=== PATIENT | male | born 1980 | race Native Hawaiian/Other Pacific Islander ===

== ENCOUNTER → 2022-08-31 12:21 | Outpatient (BNVA) | payer OTHER, SELFPAY | PROVIDERS: PCP Family Medicine; Visit Provider Internal Medicine Endocrinology, Diabetes & Metabolism | DX: E29.1 Testicular hypofunction (principal) | CPT/HCPCS: 99202 ==

== ENCOUNTER 2022-11-11 09:33 | Outpatient (REF) | payer OTHER, SELFPAY ==
[2022-11-11 11:44] LABS: Ferritin 96 ng/mL (20-250); Free T4 (Free Thyroxine) 0.85 ng/dL (0.71-1.85); Thyroid Stimulating Hormone 1.31 uIU/mL (0.32-4.0)
[2022-11-11 11:54] LABS: Cortisol Random 12.7 ug/dL
[2022-11-12 17:45] LABS: Follicle Stimulating Hormone 6.3 mIU/mL (1.6-8.0); Lutenizing Hormone 6.1 mIU/mL (1.5-9.3); Prolactin 5.3 ng/mL (2.0-18.0)
[2022-11-20 16:28] LABS: Testosterone, Total 190 ng/dL (250-1100)
== END 2022-11-11 09:34 | disposition home or self-care (01) ==
LOC: HO.LAB 09:33
PROVIDERS: PCP Family Medicine; Visit Provider Internal Medicine Endocrinology, Diabetes & Metabolism
DX: E29.1 Testicular hypofunction (principal)
CPT/HCPCS: 36415; 82533; 82728; 83001; 83002; 84146; 84402; 84403; 84439; 84443

== ENCOUNTER 2022-12-14 07:52 | Outpatient (REF) | payer OTHER, SELFPAY ==
[2022-12-22 14:39] LABS: Follicle Stimulating Hormone 12.7 mIU/mL (1.6-8.0); Lutenizing Hormone 8.6 mIU/mL (1.5-9.3); Prolactin 12.7 ng/mL (2.0-18.0); Testosterone, Free 30.5 pg/mL (35.0-155.0); Testosterone, Total 205 ng/dL (250-1100)
== END 2022-12-14 07:53 | disposition home or self-care (01) ==
LOC: HO.LAB 07:52
PROVIDERS: PCP Family Medicine; Visit Provider Internal Medicine Endocrinology, Diabetes & Metabolism
DX: E29.1 Testicular hypofunction (principal)
CPT/HCPCS: 36415; 83001; 83002; 84146; 84402; 84403

== ENCOUNTER → 2022-12-30 12:55 | Outpatient (BNVA) | payer OTHER, SELFPAY | PROVIDERS: PCP Family Medicine; Visit Provider Internal Medicine Endocrinology, Diabetes & Metabolism | DX: E29.1 Testicular hypofunction (principal) | CPT/HCPCS: 99212 ==

== ENCOUNTER 2023-01-18 12:55 | Outpatient (REF) | payer OTHER, SELFPAY ==
--- NOTE | ~2023-01-18 | MR_ITS ---
EXAMINATION: MR BRAIN WITHOUT AND WITH CONTRAST CLINICAL INFORMATION: Testicular hypofunction. COMPARISON: None available. TECHNIQUE: Multiplanar, multisequence imaging of the brain was performed before and after the intravenous administration of 5 mL of Gadavist. FINDINGS: There is no acute infarction, hemorrhage, or extra-axial fluid collection. A 6 mm lesion with peripheral hemosiderin staining and central T2 hyperintensity is seen within the left frontal lobe most likely representing a cavernous malformation (series 7 image 17/27). There is no perilesional edema to suggest recent hemorrhage. The frontal lobe parenchyma adjacent to the cavernous malformation appears diffusely thickened compatible with focal cortical dysplasia best defined on series 7 image 18/27. Given the diffuse sheetlike enhancement in this region, a capillary telangiectasia may be superimposed. The brain parenchyma signal is otherwise normal. The midline structures are normal. The corpus callosum is fully formed. The cerebellar tonsils terminate normally above the foramen magnum. The pituitary gland demonstrates heterogeneous enhancement. No definite well-defined hypoenhancing lesion is seen. Infundibulum is normal in thickness and morphology and inserts in the midline. The flow voids of the major intracranial arteries appear intact. The bones and extracranial soft tissues are within normal limits. MR/MR head/brain wo/w con IMPRESSION: 1. No definite pituitary lesion identified. Heterogeneous enhancement of the pituitary gland without a well-defined hypoenhancing lesion. 2. 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
== END 2023-01-18 12:56 | disposition home or self-care (01) ==
LOC: HO.MRI 12:55
PROVIDERS: PCP Family Medicine; Visit Provider Internal Medicine Endocrinology, Diabetes & Metabolism
DX: E29.1 Testicular hypofunction (principal)
CPT/HCPCS: 70553; A9585

== ENCOUNTER → 2023-03-03 10:25 | Outpatient (BNVA) | payer OTHER, SELFPAY | PROVIDERS: PCP Family Medicine; Visit Provider Internal Medicine Endocrinology, Diabetes & Metabolism | DX: E29.1 Testicular hypofunction (principal) | CPT/HCPCS: 99212 ==

== ENCOUNTER 2023-06-12 10:42 | Outpatient (REF) | payer OTHER, SELFPAY ==
[2023-06-12 11:42] LABS: Hemoglobin 15.1 g/dl (14.0-18.0)
[2023-06-18 10:48] LABS: Testosterone, Total 234 ng/dL (250-1100)
== END 2023-06-12 10:43 | disposition home or self-care (01) ==
LOC: HO.LAB 10:42
PROVIDERS: PCP Family Medicine; Visit Provider Internal Medicine Endocrinology, Diabetes & Metabolism
DX: E29.1 Testicular hypofunction (principal)
CPT/HCPCS: 36415; 84402; 84403; 85014; 85018

== ENCOUNTER 2023-06-19 08:53 | Outpatient (REF) | payer OTHER, SELFPAY ==
[2023-06-26 14:43] LABS: Testosterone, Free 171.6 pg/mL (35.0-155.0); Testosterone, Total 478 ng/dL (250-1100)
== END 2023-06-19 08:54 | disposition home or self-care (01) ==
LOC: HO.LAB 08:53
PROVIDERS: PCP Family Medicine; Visit Provider Internal Medicine Endocrinology, Diabetes & Metabolism
DX: Z13.89 Encounter for screening for other disorder (principal)
CPT/HCPCS: 36415; 84402; 84403

== ENCOUNTER 2024-01-17 13:25 | Outpatient (AMB) | payer OTHER, SELFPAY ==
[2024-01-17 13:28] VITALS: BP 116/68; BMI 26.4
--- NOTE | 2024-01-17 13:28 | MHC.OFFVIS ---
Intake Vital Signs 01/17/24 13:28 Height 6 ft 2.8 in Weight 210 lb 1.608 oz BMI 26.4 BP 116/68 Blood Pressure Location Lt brachial Position Sitting Intake Visit Reasons: f/u hypogonadism-confirmed Intake Note: Patient present today for Hypogonadism follow up visit. Paleology Teacher Required: No Accompanied by: Self / Same As Patient Allergies No Known Allergies Allergy (Verified 01/17/24 13:33) HPI HPI Comments History of Present Illness Details 42 YO Male with PMHx hypogonadism who is seen in consultation at the request of his PCP for Hypogonadism. First diagnosed with Hypogonadism 2014 . Not seen lean six sigma black belt before . He showed me a previous work up with testosterone was low an LH FSH were undetectable. No further workup was done Was started on Testosterone supplementation with 60 mg 2/wk and found relief. Currently using IM testosterone. Last dose was last Monday . Currently achieving spontaneous am erections, and able to achieve erection when desired. Reports low libido improved somewhat with testosterone . Decreased facial hair and shaving frequency. Denies any change in size or shape of testicles. Denies penile discharge or scrotal tenderness. Denies any history of mumps orchitis. Denies any head trauma. history of NICANOR Does not currently use CPAP with children who were conceived spontaneously. Not looking to father a child Sense of smell intact. Denies headache or visual changes, has gynecomastia but no galactorrhea. Denies orthostatic symptoms, weight loss. Denies change in size of hands or feet. Denies hair loss, weight gain, cold intolerance. 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 MRI showed nonspecific changes without pituitary mass. Sleep study showed mild obstructive sleep apnea PSA CBC Currently on testosterone intramuscular 100 mg q.5 days. He check the peak level was high but this was done right after injecting of the 5th day. [facility] Medical History (Updated 03/03/23 @ 10:34 by JUAN LUIS Aceves) Hypogonadism, testicular Surgical History History of gynecomastia Family History Mother High blood pressure Pneumonia Kidney disease Social History Household Members: Significant Other Household Members Other:: Wolf Alcohol intake: never Patient Tobacco Use Status: Never used Tobacco Physical Exam Vital Signs: Last Vital Signs BP 116/68 01/17/24 13:28 BMI result Body Mass Index 26.4 Assessment & Plan Assessment & Plan (1) Hypogonadism, testicular: Code(s): E29.1 - Testicular hypofunction Plan: This is a 43-year-old male with a history of hypogonadism Previous 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 On testosterone 100 mg Q 5 days The plan is to re check peak testosterone 2 days after injecting and CBC. Adjust testosterone accordingly Orders: Orders Hematocrit Today E29.1 - Testicular hypofunction Hemoglobin Today E29.1 - Testicular hypofunction Coding Level of Care Code Est Pt Level 3 (29409) Diagnoses Hypogonadism, testicular E29.1
== END 2024-01-17 14:37 | disposition home or self-care (01) ==
PROVIDERS: PCP Family Medicine; Visit Provider Internal Medicine Endocrinology, Diabetes & Metabolism
DX: E29.1 Testicular hypofunction (principal)
CPT/HCPCS: 99213

== ENCOUNTER → 2024-01-17 13:25 | Outpatient (BNVA) | payer OTHER, SELFPAY | PROVIDERS: PCP Family Medicine; Visit Provider Internal Medicine Endocrinology, Diabetes & Metabolism | DX: E29.1 Testicular hypofunction (principal) | CPT/HCPCS: 99212 ==

== ENCOUNTER 2024-06-24 09:34 | Outpatient (REF) | payer OTHER, SELFPAY ==
[2024-06-24 10:07] LABS: Hemoglobin 15.5 g/dl (14.0-18.0)
== END 2024-06-24 09:35 | disposition home or self-care (01) ==
LOC: HO.LAB 09:34
PROVIDERS: PCP Family Medicine; Visit Provider Internal Medicine Endocrinology, Diabetes & Metabolism
DX: E29.1 Testicular hypofunction (principal)
CPT/HCPCS: 36415; 85014; 85018

== ENCOUNTER 2024-07-18 13:18 | Outpatient (REF) | payer OTHER, SELFPAY ==
[2024-07-18 14:33] LABS: Hematocrit 46.4 % (42.0-52.0)
[2024-07-24 16:17] LABS: Testosterone, Free 252.2 pg/mL (35.0-155.0); Testosterone, Total 769 ng/dL (250-1100)
== END 2024-07-18 13:19 | disposition home or self-care (01) ==
LOC: HO.LAB 13:18
PROVIDERS: PCP Family Medicine; Visit Provider Internal Medicine Endocrinology, Diabetes & Metabolism
DX: E29.1 Testicular hypofunction (principal)
CPT/HCPCS: 36415; 84402; 84403; 85014; 85018

== ENCOUNTER 2024-08-07 12:40 | Outpatient (AMB) | payer OTHER, SELFPAY ==
--- NOTE | 2024-08-07 12:54 | MHC.OFFVIS ---
Vital Signs 08/07/24 12:55 Height 6 ft 2.8 in Weight 210 lb 5.136 oz BMI 26.4 BP 102/62 Blood Pressure Location Lt brachial Position Sitting Pulse 58 Pulse Source Pulse Oximeter Intake Visit Reasons: Hypogonadism-conf Intake Note: Patient present today for Hypogonadism follow up visit. Computer Network Support Specialist Required: No Accompanied by: Self / Same As Patient Allergies No Known Allergies Allergy (Verified 08/07/24 12:58) Medication List - Last Reconciled 08/07/24 by Keith Whitman MD ascorbic acid (vitamin C) mg PO cvejudgyr-xeuojdgw-rwv-hyalur 40-5-3.3 mg (Move Free Ultra Triple Action (boron)) tabs PO cetirizine 10 mg PO DAILY PRN milk thistle 500 mg PO DAILY multivitamin 1 tab PO DAILY omega 3-vfy-tut-fish oil 1,000 mg (120 mg-180 mg) (Fish Oil) 1 cap PO DAILY testosterone cypionate 100 mg (0.5 mL) IM QWEEK vitamin B complex 1 cap PO DAILY vitamin K2 100 mcg PO DAILY HPI Comments Details: 44 YO Male with PMHx hypogonadism who is seen in consultation at the request of his PCP for Hypogonadism. First diagnosed with Hypogonadism 2014 . Not seen graphic design professor before . He showed me a previous work up with testosterone was low an LH FSH were undetectable. No further workup was done Was started on Testosterone supplementation with 60 mg 2/wk and found relief. Currently using IM testosterone. Last dose was last Monday . Currently achieving spontaneous am erections, and able to achieve erection when desired. Reports low libido improved somewhat with testosterone . Decreased facial hair and shaving frequency. Denies any change in size or shape of testicles. Denies penile discharge or scrotal tenderness. Denies any history of mumps orchitis. Denies any head trauma. history of NICANOR Does not currently use CPAP with children who were conceived spontaneously. Not looking to father a child Sense of smell intact. Denies headache or visual changes, has gynecomastia but no galactorrhea. Denies orthostatic symptoms, weight loss. Denies change in size of hands or feet. Denies hair loss, weight gain, cold intolerance. 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 MRI showed nonspecific changes without pituitary mass. Sleep study showed mild obstructive sleep apnea PSA CBC Currently on testosterone intramuscular 100 mg q.5 days. He check the peak level was high but this was done right after injecting of the 5th day. [facility] Medical History (Updated 03/03/23 @ 10:34 by JUAN LUIS Aceves) Hypogonadism, testicular Surgical History History of gynecomastia Family History Mother High blood pressure Pneumonia Kidney disease Social History Household Members: Significant Other Household Members Other:: Wolf Alcohol intake: never Patient Tobacco Use Status: Never used Tobacco Physical Exam Vital Signs: Last Vital Signs Pulse 58 08/07/24 12:55 BP 102/62 08/07/24 12:55 BMI result Body Mass Index 26.4 Assessment & Plan Assessment & Plan (1) Hypogonadism, testicular: Code(s): E29.1 - Testicular hypofunction Category: Medical Plan: This is a 43-year-old male with a history of hypogonadism 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
[2024-08-07 12:55] VITALS: BP 102/62; PULSE 58; BMI 26.4
== END 2024-08-07 13:31 | disposition home or self-care (01) ==
PROVIDERS: PCP Family Medicine; Referring Provider Family Medicine; Visit Provider Internal Medicine Endocrinology, Diabetes & Metabolism
DX: E29.1 Testicular hypofunction (principal)
CPT/HCPCS: 99213

== ENCOUNTER → 2024-08-07 12:40 | Outpatient (BNVA) | payer OTHER, SELFPAY | PROVIDERS: PCP Family Medicine; Visit Provider Internal Medicine Endocrinology, Diabetes & Metabolism | DX: E29.1 Testicular hypofunction (principal) | CPT/HCPCS: 99212 ==

== ENCOUNTER 2025-01-15 14:59 | Outpatient (REF) | payer OTHER, SELFPAY ==
[2025-01-15 15:25] LABS: Hematocrit 46.5 % (42.0-52.0)
--- OUTSIDE RECORDS SUMMARY | 2025-01-15 17:38 | XMS_ITS | Clinical Summary ---
Author Organization [facility] ity Address [address] [place] [address] Care Team Providers Care Art Consultant Name Role Phone Unavailable Primary Care Provider Unavailabl e Social History Tobacco Use Types Packs/Day Years Used Date Smoking Tobacco: Never Assessed Sex and Gender Information Value Date Recorded Sex Assigned at Not on file Legal Sex Male 8:17 PM EST Gender Identity Not on file Sexual Orientation Not on file Plan of Treatment Health Maintenance Due Date Last Done Comments DTaP,Tdap,and Td Vaccines (1 - Tdap) 1999 Hepatitis B Vaccines (1 of 3 - 19+ 3-dose series) 1999 COVID-19 Vaccine (2023-2 5 season) 2024 Influenza Vaccine (#1) 2024 HIB Vaccines Aged Out No longer eligi ble based on patient's age to complete this topic HPV Vaccines Aged Out No longer eligi ble based on patient's age to complete this topic Hepatitis A Vaccines Aged Out No long er eligible based on patient's age to complete this topic IPV Vaccines Aged Out No longer eligi ble based on patient's age to complete this topic MMR Vaccines Aged Out No longer eligi ble based on patient's age to complete this topic Meningococcal ACWY Vaccine Aged Out N o longer eligible based on patient's age to complete this topic Meningococcal B Vacine Aged Out No lo nger eligible based on patient's age to complete this topic Pneumococcal Vaccine: Pediat rics (0 to 5 Years) and At-Risk Patients (6 to 64 Years) Aged Out No longer eligible b ased on patient's age to complete this topic RSV Immunization Patients Un ngoc 20 months Aged Out No longer eligible b ased on patient's age to complete this topic Varicella Vaccines Aged Out No longer eligible based on patient's age to complete this topic
--- OUTSIDE RECORDS SUMMARY | 2025-01-15 17:38 | XMS_ITS | Continuity of Care Document ---
Author Name [facility] Organization [facility] Care Team Providers Care Pantograph Operator Name Role Phone [facility] Unavailable Unavailable Problems Combined list of problems from Department of Defense and Veterans Affairs facilities. It does not include entries that were removed or entered in error. 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 [facility] [place] [facility] Chronic low back pain Active Condition [facility] Elevated BUN Active Condition March 31, 2020 Entered By: JANETTE KOLB Comment: present since 2016, unclear etiology, may possibly be related to high protein diet and increased muscle mass [facility] [place] [facility] Elevated LDH Active Condition Jan 01, 2020 Entered By: JANETTE KOLB Comment: per GI 07/10/19 notes possibly related to liver pathology [facility] [place] Environmental allergy (SNOMED CT 945663858) [facility] [place] [facility] Hepatic peliosis Active Condition March 31, 2020 Entered By: JANETTE KOLB Comment: Secondary to anabolic steroid use [facility] [place] [facility] Hepatomegaly Active Condition March 31, 2020 Entered By: JANETTE KOLB Comment: 08/23/19 - CT Abd - hepatomegaly, no focal liver mass, no other abnormality - ordered by Dr Lacey Lynn [facility] [place] Herpes labialis Active Condition [facility] Liver function tests abnormal Active Condition [facility] Liver function tests abnormal Active Condition Jan 01, 2020 Entered By: JANETTE KOLB Comment: per liver evaluation from GI 07/10/19, suggested possibly 2/2 testosterone use, recommended stopping testosterone but vet has refused [facility] [place] Low back pain Active Condition Dec Entered By: JANETTE KOLB Comment: Chronic/Intermi ttentMay 2019 Entered By: JANETTE KOLB Comment: MRI L-Spine (?date) - mild-mod deg disc dz L5-S1w/disc dessication & disc height loss w/small annular tear [facility] Low testosterone Active Condition [facility] Obstructive sleep apnea syndrome Active Condition [facility] Obstructive sleep apnea syndrome Active Condition Dec 16, 2019 Entered By: JANETTE KOLB Comment: CPAP [id number] 2019 Entered By: JANETTE KOLB Comment: Dxed 06/2019 - MILD [facility] Testicular hypofunction Active Condition Jan 01, 2020 Entered By: JANETTE KOLB Comment: Low testosterone level dxed 2016 [facility] Diagnosis: ICD-10-CM G47.33 Obstructive sleep apnea (adult) (pediatric) Active Diagnosis [facility] Diagnosis: ICD-10-CM E29.1 Testicular hypofunction Active Diagnosis [facility] Medications Combined list of outpatient medications from Department of Defense and [facility] Affairs facilities.Medications provided include 1) outpatient medications from the last 15 months, and 2) patient-reported medications. Medication Details Route Status Patient Instructions Prescription Expires Prescription Number Last Dispense Date Ordering Provider Order Date Order Qty Source acyclovir (U/D) 200 MG ORAL CAP TAKE TWO CAPSULES BY MOUTH THREE TIMES A DAY Active 03/28/2025 [id number] JANETTE KOLB 2023 30 [facility] acyclovir (U/D) 200 MG ORAL CAP TAKE TWO CAPSULES BY MOUTH THREE TIMES A DAY Active 03/28/2025 [id number] JANETTE KOLB 2023 30 [facility] acyclovir (U/D) 200 MG ORAL CAP TAKE TWO CAPSULES BY MOUTH THREE TIMES A DAY Discont inued 06/14/2024 [id number] 4 JANETTE KOLB 2023 30 [facility] ACYCLOVIR 200MG CAP TAKE TWO CAPSULES BY MOUTH TWICE DAILY FOR COLD SORE ORAL ACTIVE 05/17/2025 [id number] 4 DENIA KOLB SA 2023 360 [place] ACYCLOVIR 200MG CAP TAKE TWO CAPSULES BY MOUTH THREE TIMES A DAY ORAL DISCONT INUED (EDIT) 03/28/2025 [id number] 4 DENIA KOLB SA 2023 30 [place] ACYCLOVIR 200MG CAP TAKE TWO CAPSULES BY MOUTH THREE TIMES A DAY ORAL DISCONT INUED 06/14/2024 [id number] DENIA KOLB SA 2022 30 [place] ASCORBIC ACID 500MG TAB TAKE TWO TABLETS BY MOUTH ONCE DAILY ORAL ACTIVE DENIA KOLB SA 2019 [facility] CHOLECALCIF JOHN 25MCG (1,000UNIT) TAB TAKE FIVE TABLETS BY MOUTH ONCE DAILY ORAL ACTIVE DENIA KOLB SA 2019 [facility] CICLOPIROX 8 % TOP SOLN [6.6 ML] APPLY SMALL AMOUNT TOPICALL Y AT BEDTIME REMOVE WITH ALCOHOL EVERY 7 DAYS 06/14/2024 [id number] 4 JANETTE KOLB 2023 0 [facility] CICLOPIROX 8% SOLN,TOP APPLY SMALL AMOUNT TOPICALL Y AT BEDTIME REMOVE WITH ALCOHOL EVERY 7 DAYS TOPICA L 06/14/2024 [id number] 4 DENIA KOLB SA 2022 6.6 [place] FISH OIL 1000MG (500MG DHA/EPA) CAP,ORAL TAKE 2 CAPSULES BY MOUTH ONCE DAILY ORAL ACTIVE DENIA KOLB SA 2019 [facility] MULTIVITAMI NS W/MINERALS TAB TAKE ONE TABLET BY MOUTH ONCE DAILY ORAL ACTIVE DENIA KOLB SA 2019 [facility] [place] [facility] TESTOSTERON E CYPIONATE 200MG/ML INJ,1ML (IN OIL) INJECT 0.5ML (100MG) INTRAMUS CULARLY ONCE A WEEK INTRAM USCULA R ACTIVE 06/09/2025 [id number] HEATHER HILLMAN 2024 4 [place] TESTOSTERON E CYPIONATE 200MG/ML INJ,1ML (IN OIL) INJECT 0.5ML (100MG) INTRAMUS CULARLY ONCE A WEEK INTRAM USCULA R 10/31/2024 [id number] 4 HEATHER HILLMAN 2023 4 [place] TESTOSTERON E CYPIONATE 200MG/ML INJ,1ML (IN OIL) INJECT 0.5ML (100MG) INTRAMUS CULARLY ONCE A WEEK INTRAM USCULA R 04/06/2024 [id number] HEATHER HILLMAN 2022 4 [place] Testosteron e Cypionate 200mg/mL, Injection INJECT 0.5ML (100MG) INTRAMUS CULARLY ONCE A WEEK 04/06/2024 [id number] 4 LATHA HILLMAN 2023 4 [facility] TESTOSTERON E CYPIONATE INJ,SOLN INJECT 120MG INTRAMUS CULAR ONCE A WEEK INTRAM USCULA R ACTIVE [place] 2018 [facility] VITAMIN B COMPLEX CAP TAKE 1 CAPSULE BY MOUTH ONCE DAILY ORAL ACTIVE DENIA KOLB SA 2019 [facility] Allergies, Adverse Reactions, Alerts Combined list of allergies from Department of Defense and Veterans Affairs facilities. It does not include entries that were removed or entered in error. Substance Category Reaction Severity Reaction type Status Date Reported Comments Source No Known Allergies Drug allergy (disorder) active 02/27/2008 [facility] [employer] [facility] Immunizations Combined list of available immunizations from the Department of Defense and Veterans Affairs facilities. Immunization Series Date Given Administered By Site Reaction Lot Number CVX Code Drug New Accounts Representative Status Comments Source COVID-19 (PFIZER), MRNA, LNP-S, PF, 30 MCG/0.3 ML DOSE 2 2020 208 complet ed [facility] [place] [facility] COVID-19 (PFIZER), MRNA, LNP-S, PF, 30 MCG/0.3 ML DOSE 1 2020 208 complet ed [facility] [place] [facility] TDAP 2018 115 complet ed [facility] Results Combined list of recent chemistry, hematology and other laboratory results from Department of Defense and Veterans Affairs, ranging from 15 months to all on record, depending upon the facility. Order Name Results Value Reference Range Date Interpretation Specimen Comments Source TESTOSTER ONE-FREE (qu) TESTOSTERON E FREE [MASS/VOLUM E] IN SERUM OR PLASMA 176.2 pg/mL 46.0 - 224.0 08/29 Specimen Type: SERUM Comment: The concentrati on of free testosteron e is derived from a mathematica l model using total testosteron e by LCMSMS, sex hormone binding globulin and albumin. This test was developed and its analytical performance characteris tics have been determined by [employer] [place], [place]. It has not been cleared or approved by the U.S. Food and Drug Administrat ion. This assay has been validated pursuant to the CLIA regulations and is used for clinical purposes. Test Performed by [facility], [facility], [address] [place] [address] Juan A Rogers M.D., Ph.D., Director of Laboratorie s , CLIA [id number] TEST PERFORMED AT: , Ordering Provider: JANETTE KOLB Report Released Date/Time: March 27, 2024 01:51 PM Reporting Lab: [facility] [place] [facility] [address] [address] Performing Lab: [facility] [place] [facility] [address] [address] [facility] [address] TESTOSTER ONE, TOTAL (WHV) TESTOSTERON E [MASS/VOLUM E] IN SERUM OR PLASMA 674.85 ng/dL 220.00 - 892.00 08/29 Specimen Type: SERUM No comment entered. Ordering Provider: JANETTE KOLB Report Released Date/Time: March 27, 2024 01:51 PM Reporting Lab: [facility] [place] [facility] [address] [address] Performing Lab: [facility] [facility] [address] [place] [address] [facility] [place] [facility] LIVER FUNCTION PROTEIN [MASS/VOLUM E] IN SERUM OR PLASMA 7.2 g/dL 6.0 - 8.3 08/29 Specimen Type: SERUM No comment entered. Ordering Provider: JANETTE KOLB Report Released Date/Time: March 27, 2024 01:51 PM Reporting Lab: [facility] [place] [facility] [address] [address] Performing Lab: [facility] [place] [facility] [address] [address] [place] [facility] [place] [facility] LIVER FUNCTION ALBUMIN [MASS/VOLUM E] IN SERUM OR PLASMA 4.1 g/dL 3.5 - 5.0 08/29 Specimen Type: SERUM No comment entered. Ordering Provider: JANETTE KOLB Report Released Date/Time: March 27, 2024 01:51 PM Reporting Lab: [facility] [place] [facility] [address] [address] Performing Lab: [facility] [place] [facility] [address] [address] [place] [facility] [facility] LIVER FUNCTION ALKALINE PHOSPHATASE [ENZYMATIC ACTIVITY/VO LUME] IN SERUM OR PLASMA 63 U/L 40 - 150 08/29 Specimen Type: SERUM No comment entered. Ordering Provider: JANETTE KOLB Report Released Date/Time: March 27, 2024 01:51 PM Reporting Lab: [facility] [place] [facility] [address] [address] Performing Lab: [facility] [place] [facility] [address] [address] [facility] [place] [facility] LIVER FUNCTION ASPARTATE AMINOTRANSF ERASE [ENZYMATIC ACTIVITY/VO LUME] IN SERUM OR PLASMA 98 U/L 5 - 34 08/29 H Specimen Type: SERUM No comment entered. Ordering Provider: JANETTE KOLB Report Released Date/Time: March 27, 2024 01:51 PM Reporting Lab: [facility] [place] [facility] [address] [address] Performing Lab: [facility] [place] [facility] [address] [address] [facility] [place] [facility] LIVER FUNCTION ALANINE AMINOTRANSF ERASE [ENZYMATIC ACTIVITY/VO LUME] IN SERUM OR PLASMA 87 U/L 08/29 H Specimen Type: SERUM No comment entered. Ordering Provider: JANETTE KOLB Report Released Date/Time: March 27, 2024 01:51 PM Reporting Lab: [facility] [place] [address] [address] Performing Lab: [facility] [place] [address] [address] [place] [facility] [facility] LIVER FUNCTION BILIRUBIN.T OTAL [MASS/VOLUM E] IN SERUM OR PLASMA 0.9 mg/dL 0.2 - 1.2 08/29 Specimen Type: SERUM No comment entered. Ordering Provider: JANETTE KOLB Report Released Date/Time: March 27, 2024 01:51 PM Reporting Lab: [facility] [place] [address] [address] Performing Lab: [facility] [place] [address] [address] [facility] [place] [facility] BASIC METABOLIC PANEL (fasting) UREA NITROGEN [MASS/VOLUM E] IN SERUM OR PLASMA 28 mg/dL 7 - 25 08/29 H Specimen Type: SERUM No comment entered. Ordering Provider: JANETTE KOLB Report Released Date/Time: March 27, 2024 01:51 PM Reporting Lab: [facility] [place] [address] [address] Performing Lab: [facility] [place] [address] [address] [facility] [place] [facility] BASIC METABOLIC PANEL (fasting) GLUCOSE [MASS/VOLUM E] IN SERUM OR PLASMA 71 mg/dL 65 - 100 08/29 Specimen Type: SERUM No comment entered. Ordering Provider: JANETTE KOLB Report Released Date/Time: March 27, 2024 01:51 PM Reporting Lab: [facility] [address] [address] Performing Lab: [facility]N [address] [address] [facility] BASIC METABOLIC PANEL (fasting) SODIUM [MOLES/VOLU ME] IN SERUM OR PLASMA 138 mmol/L 135 - 145 08/29 Specimen Type: SERUM No comment entered. Ordering Provider: JANETTE KOLB Report Released Date/Time: March 27, 2024 01:51 PM Reporting Lab: [facility] [address] [address] Performing Lab: [facility]N [address] [address] [facility] BASIC METABOLIC PANEL (fasting) POTASSIUM [MOLES/VOLU ME] IN SERUM OR PLASMA 4.5 mmol/L 3.5 - 5.0 08/29 Specimen Type: SERUM No comment entered. Ordering Provider: JANETTE KOLB Report Released Date/Time: March 27, 2024 01:51 PM Reporting Lab: [facility] [address] [address] Performing Lab: [facility] TRN [facility] [address] [facility]N [facility] BASIC METABOLIC PANEL (fasting) CHLORIDE [MOLES/VOLU ME] IN SERUM OR PLASMA 104 mmol/L 100 - 110 08/29 Specimen Type: SERUM No comment entered. Ordering Provider: JANETTE KOLB Report Released Date/Time: March 27, 2024 01:51 PM Reporting Lab: [facility]N [address] [address] Performing Lab: [facility]N [facility] [address] [facility] WSTRN [facility] BASIC METABOLIC PANEL (fasting) CARBON DIOXIDE, TOTAL [MOLES/VOLU ME] IN SERUM OR PLASMA 28 meq/L 20 - 30 08/29 Specimen Type: SERUM No comment entered. Ordering Provider: JANETTE KOLB Report Released Date/Time: March 27, 2024 01:51 PM Reporting Lab: [place] [facility] [place] [facility] [address] [address] Performing Lab: [place] [facility] [place] [place] [facility] [address] [address] [facility] BASIC METABOLIC PANEL (fasting) CREATININE [MASS/VOLUM E] IN SERUM OR PLASMA 1.02 mg/dL 0.50 - 1.40 08/29 Specimen Type: SERUM No comment entered. Ordering Provider: JANETTE KOLB Report Released Date/Time: March 27, 2024 01:51 PM Reporting Lab: [facility] [place] [facility] [address] [address] Performing Lab: [place] [facility] [place] [facility] [address] [address] [facility] BASIC METABOLIC PANEL (fasting) GLOMERULAR FILTRATION RATE/1.73 SQ M.PREDICTED [VOLUME RATE/AREA] IN SERUM, PLASMA OR BLOOD BY CREATININE- BASED FORMULA (CKD-EPI 2020) >90mL/ min 60 08/29 Specimen Type: SERUM No comment entered. Ordering Provider: JANETTE KOLB Report Released Date/Time: March 27, 2024 01:51 PM Reporting Lab: [place] [facility] [place] [facility] [address] [address] Performing Lab: [place] [facility] [address] [address] [facility] CPK CREATINE KINASE [ENZYMATIC ACTIVITY/VO LUME] IN SERUM OR PLASMA 2750 U/L 30 - 200 08/29 H Specimen Type: SERUM No comment entered. Ordering Provider: JANETTE KOLB Report Released Date/Time: March 27, 2024 01:51 PM Reporting Lab: [facility] [place] [facility] [address] [address] Performing Lab: [place] [facility] [facility] [address] [address] [facility] [place] [facility] LIPID PANEL FASTING CHOLESTEROL [MASS/VOLUM E] IN SERUM OR PLASMA 139 mg/dL 08/29 Specimen Type: SERUM No comment entered. Ordering Provider: JANETTE KOLB Report Released Date/Time: March 27, 2024 01:51 PM Reporting Lab: [place] [facility] [place] [facility] [address] [address] Performing Lab: [place] [facility] [facility] [address] [address] [facility] LIPID PANEL FASTING TRIGLYCERID E [MASS/VOLUM E] IN SERUM OR PLASMA 75 mg/dL 0 - 150 08/29 Specimen Type: SERUM No comment entered. Ordering Provider: JANETTE KOLB Report Released Date/Time: March 27, 2024 01:51 PM Reporting Lab: [facility] [place] [facility] [address] [address] Performing Lab: [place] [facility] [facility] [address] [address] [facility]RL WSTRN [facility] LIPID PANEL FASTING CHOLESTEROL IN LDL [MASS/VOLUM E] IN SERUM OR PLASMA BY CALCULATION 77 mg/dL 0 - 129 08/29 Specimen Type: SERUM No comment entered. Ordering Provider: JANETTE KOLB Report Released Date/Time: March 27, 2024 01:51 PM Reporting Lab: [place] [facility] [place] [facility] [address] [address] Performing Lab: [place] [facility] [place] [address] [address] [facility] LIPID PANEL FASTING CHOLESTEROL .TOTAL/CHOL ESTEROL IN HDL [MASS RATIO] IN SERUM OR PLASMA 3.0 08/29 Specimen Type: SERUM No comment entered. Ordering Provider: JANETTE KOLB Report Released Date/Time: March 27, 2024 01:51 PM Reporting Lab: [address] [address] Performing Lab: [address] [address] [facility] LIPID PANEL FASTING CHOLESTEROL IN HDL [MASS/VOLUM E] IN SERUM OR PLASMA 47 mg/dL 40 - 60 08/29 Specimen Type: SERUM No comment entered. Ordering Provider: JANETTE KOLB Report Released Date/Time: March 27, 2024 01:51 PM Reporting Lab: [address] [address] Performing Lab: [address] [address] [facility] TESTOSTER ONE-FREE (qu) TESTOSTERON E FREE [MASS/VOLUM E] IN SERUM OR PLASMA 134.2 pg/mL 46.0 - 224.0 03/12 Specimen Type: SERUM Comment: The concentrati on of free testosteron e is derived from a mathematica l model using total testosteron e by LCMSMS, sex hormone binding globulin and albumin. This test was developed and its analytical performance characteris tics have been determined by [employer] [place], [place]. It has not been cleared or approved by the U.S. Food and Drug Administrat ion. This assay has been validated pursuant to the CLIA regulations and is used for clinical purposes. Test Performed by [facility], [facility], [address] [place] [address] Juan A Rogers M.D., Ph.D., Director of Laboratorie s , CLIA [id number] TEST PERFORMED AT: , Ordering Provider: JANETTE KOLB Report Released Date/Time: Apr 07, 2023 08:20 AM Reporting Lab: [address] [address] Performing Lab: [address] [address] [place] TESTOSTER ONE, TOTAL (WHV) TESTOSTERON E [MASS/VOLUM E] IN SERUM OR PLASMA 941.76 ng/dL 220.00 - 892.00 03/12 H Specimen Type: SERUM No comment entered. Ordering Provider: JANETTE KOLB Report Released Date/Time: Apr 07, 2023 08:20 AM Reporting Lab: [facility]ITAL[facility] [address] [address] Performing Lab: [facility] [place] [address] [address] [place] CREATINE KINASE [ENZYMATIC ACTIVITY/VO LUME] IN SERUM OR PLASMA 2400 U/L 30 - 200 03/12 H Specimen Type: SERUM No comment entered. Ordering Provider: JANETTE KOLB Report Released Date/Time: Apr 07, 2023 08:20 AM Reporting Lab: [facility]ITALUSETS [address] [address] Performing Lab: [facility] TRN [place] [address] [address] [place] LIVER FUNCTION PROTEIN [MASS/VOLUM E] IN SERUM OR PLASMA 7.0 g/dL 6.0 - 8.3 03/12 Specimen Type: SERUM No comment entered. Ordering Provider: JANETTE KOLB Report Released Date/Time: Apr 07, 2023 08:20 AM Reporting Lab: [facility] [place] [address] [address] Performing Lab: [facility]TRN [place] [address] [address] [place] LIVER FUNCTION ALBUMIN [MASS/VOLUM E] IN SERUM OR PLASMA 3.8 g/dL 3.5 - 5.0 03/12 Specimen Type: SERUM No comment entered. Ordering Provider: JANETTE KOLB Report Released Date/Time: Apr 07, 2023 08:20 AM Reporting Lab: [facility]ITALUSETS [address] [address] Performing Lab: [facility] [place] [address] [address] [place] LIVER FUNCTION ALKALINE PHOSPHATASE [ENZYMATIC ACTIVITY/VO LUME] IN SERUM OR PLASMA 61 U/L 40 - 150 03/12 Specimen Type: SERUM No comment entered. Ordering Provider: JANETTE KOLB Report Released Date/Time: Apr 07, 2023 08:20 AM Reporting Lab: [place] [facility] [place] [address] [address] Performing Lab: [place] [facility] [place] [facility] [address] [address] [place] LIVER FUNCTION ASPARTATE AMINOTRANSF ERASE [ENZYMATIC ACTIVITY/VO LUME] IN SERUM OR PLASMA 84 U/L 5 - 34 03/12 H Specimen Type: SERUM No comment entered. Ordering Provider: JANETTE KOLB Report Released Date/Time: Apr 07, 2023 08:20 AM Reporting Lab: [place] [facility] [place] [address] [address] Performing Lab: [place] [facility] [address] [place] LIVER FUNCTION ALANINE AMINOTRANSF ERASE [ENZYMATIC ACTIVITY/VO LUME] IN SERUM OR PLASMA 85 U/L 03/12 H Specimen Type: SERUM No comment entered. Ordering Provider: JANETTE KOLB Report Released Date/Time: Apr 07, 2023 08:20 AM Reporting Lab: [place] [facility] [place] [address] [address] Performing Lab: [facility] TRN [facility] [address] [place] LIVER FUNCTION BILIRUBIN.T OTAL [MASS/VOLUM E] IN SERUM OR PLASMA 0.6 mg/dL 0.2 - 1.2 03/12 Specimen Type: SERUM No comment entered. Ordering Provider: JANETTE KOLB Report Released Date/Time: Apr 07, 2023 08:20 AM Reporting Lab: [place] [facility] [address] [address] Performing Lab: [facility] TRN [address] [address] [place] Vital Signs Combined list of inpatient and outpatient Vital Signs from Department of Defense and Veterans Affairs, ranging from 12 months to all on record, depending upon the facility. Vital Sign Value Date Comments Source SYSTOLIC BLOOD PRESSURE 120 03/27/20 24 13:03:56 [facility] [place] [facility] DIASTOLIC BLOOD PRESSURE 79 024 13:03:56 [facility] [place] [facility] PULSE OXIMETRY 99 03/27/2024 13:03:56 [facility] [place] [facility] WEIGHT 210.4 03/27/2024 13:03:56 [facility] [place] [facility] BMI 28 kg/m2 03/27/2024 13:03:56 [facility] PAIN 0 03/27/2024 13:03:56 [facility] HEIGHT 73 03/27/2024 13:03:56 [facility] TEMPERATURE 97.7 03/27/2024 13:03:56 [facility] PULSE 73 03/27/2024 13:03:56 [facility] RESPIRATION 16 03/27/2024 13:03:56 [facility] Encounters Combined list of: 1) Encounters from Department of Veterans Affairs facilities going backup to the last 18 months, not all VA inpatient encounters are included; 2) Encounters from the Department of Defense facilities going backup to 280 months. Location Location Details Encounter Type Encounter Number Reason For Visit Attending Provider ADM Date DC Date Status Disposition Source [facility] Outpatient Encounter [id number] 09/14 [facility] [place] [facility] OFFICE O/P NEW LOW 30-44 MIN [id number] Diagnos is: ICD-10- CM G47.33 Obstruc tive sleep apnea (adult) (pediat zeynep) THERESA PANIAGUA 09/18 [facility] En[facility] [id number] 10/13 [facility] [id number] 01/16 [facility] En[facility] [id number] RIZWAN WEINSTEIN 03/01 [facility] OFF[facility] O/P EST MOD 30 MIN [id number] Diagnos is: ICD-10- CM E29.1 Testicu lar hypofun ctSEUN Mittal 03/[place] [facility] Out[facility] Encounter [id number] 03/28 [facility] [id number] 04/29 [facility]counter [id number] 05/16 [facility] [id number] 08/07 [facility] [id number] 10/11 [facility] [id number] 10/14 [facility] [id number] RIZWAN WEINSTEIN 10/17 [facility] En[facility] [id number] 11/05 [facility]counter [id number] RIZWAN WEINSTEIN OLAS 12/05 [facility] [place] [facility] [place] PT EDUCATION NOC INDIVID [id number] Diagnos is: ICD-10- CM G47.33 Obstruc tive sleep apnea (adult) ([facility]) SEAN XIE 01/06 [facility] [place] Procedures Combined list of: 1) Procedures from Department of Veterans Affairs facilities going back up to thelast 18 months, not all VA non-surgical procedures are included; 2) All procedures from the Department of Defense facilities. Procedure Procedure Type Code Date Perfomer Comments Ranjith LEACH 10/19/2004 [facility] Social History Combined list of available smoking, tobacco, and other social history from Department of Defense and Veterans Affairs facilities. Social History Type Response Date Comment Ranjith gandhi Tobacco smoking status KYIS VA-TOBACCO NEVER USED 03/27/2024 [facility] [place] History of tobacco use AK-TOBACCO NEVER USED 04/07/2023 [facility] History of tobacco use AK-TOBACCO NEVER USED 04/20/2022 [facility] History of tobacco use AK-TOBACCO NEVER USED 04/14/2021 [facility] History of tobacco use AK-TOBACCO NEVER USED 12/16/2019 [facility] History of tobacco use AK-TOBACCO NEVER USED 08/09/2019 [facility] History of tobacco use VA-TOBACCO NEVER USED 08/10/2018 [facility] History of tobacco use LIFETIME NON-USER OF TOBACCO 07/14/2017 [facility] This section is an empty social history section. [facility] Plan of Care List of future care activities from Department of Veterans Affairs facilities. Additional future care activities may be listed in the Assessment and Plan section. Date/Time Care Activity Care Activity Detail Facili ty 02/05/2025 AMBULATORY - MEDICINE AMBULATORY - [facility]ICI [facility] 03/26/2025 AMBULATORY - MEDICINE AMBULATORY - [place]ICI [place] [facility] [place] [facility] 04[facility]14/2025 AMBULATORY - NONE [facility] - NONE [facility] - [facility] 12/05/2024 Consult Order [facility] NDOCRINE Cons Rib Cutter's Choice [facility] Advance Directives List of completed, amended, or rescinded Advance Directives on record at Department of Veterans Affairs facilities. An actual copy of the Directive is not included. Date Advance Directive Provider Source 01/02/2020 ADVANCE DIRECTIVE CLEMENCIA SNOW [facility] 01/01/2020 ADVANCE DIRECTIVE LATHA JOSEPH [place] [facility]
--- OUTSIDE RECORDS SUMMARY | 2025-01-15 17:38 | XMS_ITS | Encounter Summary ---
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 Date/Time Encounter Type Encounter Description Reason Provider Source March 27, 2024 01:00 PM OFFICE O/P EST MOD 30 MIN PRIMARY CARE/MEDICINE ICD-10-CM E29.1 Testicular hypofunction JANETTE KOLB Encounter Template Text not used by [place] Assessments - Encounter Diagnoses This section includes the primary and secondary diagnoses documented for the Encounter. Date/Time Primary/Secondary Diagnosis Diagnosis Name Provider Source March 27, 2024 01:52 PM PRIMARY Testicular hypofunction JANETTE KOLB March 27, 2024 01:52 PM SECONDARY Abnormal results of liver function studies JANETTE KOLB March 27, 2024 01:52 PM SECONDARY Herpesviral infection, unspecified JANETTE KOLB March 27, 2024 01:52 PM SECONDARY Sleep apnea, unspecified JANETTE KOLB Lab Results: +/- 30 days of the encounter This section includes the Chemistry and Hematology Lab Results on record with VA for the patient. Radiology Reports and Pathology Reports are provided separately, in subsequent sections. Lab Results This section contains the Chemistry/Hematology Results that were resulted 30 days before or 30 daysafter the date of the Encounter. Date/Time Source Result Type Result - Unit Interpretation Reference Range Comment March 12, 2024 07:34 AM [facility] TESTOSTERONE-FREE (qu) Specimen Type: SERUM Comment: The concentration of free testosterone is derived from a mathematical model using total testosterone by LCMSMS, sex hormone binding globulin and albumin. This test was developed and its analytical performance characteristics have been determined by [facility] [place], [place]. It has not been cleared or approved by the U.S. Food and Drug Administration. This assay has been validated pursuant to the CLIA regulations and is used for clinical purposes. Test Performed by [facility], [facility], [address] [place] [address] Juan A Rogers M.D., Ph.D., Director of Laboratories , CLIA [id number] TEST PERFORMED AT: , Ordering Provider: JANETTE KOLB Report Released Date/Time: Apr 07, 2023 08:20 AM Reporting Lab: [facility] [address] [facility] [address] Performing Lab: [facility] [address] [address] TESTOSTERONE- FREE (qu) 134.2 pg/mL 46.0-224.0 March 12, 2024 07:34 AM [facility] TESTOSTERONE, TOTAL (WHV) Specimen Type : SERUM No comment entered. Ordering Provider: JANETTE KOLB Report Released Date/Time: Apr 07, 2023 08:20 AM Reporting Lab: [facility] [address] [facility] [address] Performing Lab: [facility] [address] [facility] [address] TESTOSTERONE, TOTAL (WHV) 941.76 ng/dL H 220.00-892 .00 March 12, 2024 07:34 AM [facility] CPK Specimen Type: SERUM No comment entered. Ordering Provider: JANETTE KOLB Report Released Date/Time: Apr 07, 2023 08:20 AM Reporting Lab: [facility] [address] [address] Performing Lab: [facility] [address] [facility] [address] CPK 2400 U/L H 30-200 March 12, 2024 07:34 AM [facility] LIVER FUNCTION Specimen Type: SERUM No comment entered. Ordering Provider: JANETTE KOLB Report Released Date/Time: Apr 07, 2023 08:20 AM Reporting Lab: [address] [address] Performing Lab: [address] [address] PROTEIN,TOTAL 7.0 g/dL 6.0-8.3 ALBUMIN 3.8 g/dL 3.5-5.0 ALKALINE PHOSPHATASE 61 U/L 40-150 AST 84 U/L H 5-34 ALT 85 U/L H BILIRUBIN, TOTAL 0.6 mg/dL 0.2-1.2 March 12, 2024 07:34 AM [facility] LIPID PANEL FASTING Specimen Type: SERUM No comment entered. Ordering Provider: JANETTE KOLB Report Released Date/Time: Apr 07, 2023 08:20 AM Reporting Lab: [address] [address] Performing Lab: [address] [address] CHOLESTEROL 111 mg/dL TRIGLYCERIDE 47 mg/dL 0-150 LDL calculated 77 mg/dL 0-129 CHOL/HDL 4.4 HDL CHOLESTEROL 25 mg/dL L 40-60 March 12, 2024 07:34 AM [facility] BASIC METABOLIC PANEL (fasting) Specime n Type: SERUM No comment entered. Ordering Provider: JANETTE KOLB Report Released Date/Time: Apr 07, 2023 08:20 AM Reporting Lab: [address] [address] Performing Lab: [address] [address] UREA NITROGEN 26 mg/dL H 7-25 GLUCOSE 92 mg/dL 65-100 SODIUM 137 mmol/L 135-145 POTASSIUM 4.9 mmol/L 3.5-5.0 CHLORIDE 104 mmol/L 100-110 CO2 24 meq/L 20-30 CREATININE, Serum 1.09 mg/dL 0.50-1.40 eGFR(CKD-EPI 2020) 86 mL/min >60 March 12, 2024 07:34 AM [facility] TSH Specimen Type: SERUM No comment entered. Ordering Provider: JANETTE KOBL Report Released Date/Time: Apr 07, 2023 08:20 AM Reporting Lab: [address] [address] Performing Lab: [address] [address] TSH 1.53 u[IU]/mL 0.35-5.00 March 12, 2024 07:34 AM [facility] HEMOGLOBIN A1C PANEL Specimen Type: BLOOD Comment: Values obtained from A1C measurements can vary. For atypical A1C assays, a reported value of 7.0 could actually be between 6.72 and 7.28 if measured by a reference method. A reported value of 9.0 could actually be between 8.73 and 9.27. Ref: http://www.ngsp. org/CAPdata.asp Ordering Provider: JANETTE KOLB Report Released Date/Time: Apr 07, 2023 08:20 AM Reporting Lab: [address] [address] Performing Lab: [address] [address] HEMOGLOBIN A1C 5.1 4.0-5.6 March 12, 2024 07:34 AM [facility] CBC AND DIFF (AUTO) Specimen Type: BLOOD No comment entered. Ordering Provider: JANETTE KOLB Report Released Date/Time: Apr 07, 2023 08:20 AM Reporting Lab: [address] [address] Performing Lab: [address] [address] WBC 6.49 10*3/uL 4.50-11.00 RBC 5.13 10*6/uL 4.23-5.66 HGB 16.1 g/dL 12.8-17 HCT 47.7 39.2-50.4 MCV 93.0 fL 82-99 MCHC 33.8 g/dL 30.8-35.1 PLT 334 10*3/uL 140-360 RDW-CV 14.1 12.0-16.0 [place], Abs 0.50 10*3/uL 0.30-1.10 MCH 31.4 pg 26.2-32.6 Neut % 55.1 43.7-75.8 Lymph % 35.7 14.0-42.3 [place] % 7.7 5.1-13.7 Eos % 0.9 0.4-6.8 Baso % 0.3 0.1-2.0 Neut, Abs 3.57 10*3/uL 2.20-7.60 Lymph, Abs 2.32 10*3/uL 1.00-3.20 Eos, Abs 0.06 10*3/uL 0.03-0.44 Baso, Abs 0.02 10*3/uL 0.01-0.13 Immature Gran % 0.3 0.0-0.7 Immature Gran, Abs 0.02 10*3/uL 0.00-0.06 Social History: Smoking Status (Most current) and Tobacco Use (All prior to encounter date) This section includes the most current, and the historical, smoking and tobacco- related health factors from the [place] facility where the Encounter took place. Current Smoking Status This section includes the most current smoking, or tobacco-related health factor, from the [place] facility where the Encounter took place. Date/Time Current Smoking Status Comment Omaira ity March 27, 2024 01:00 PM VA-TOBACCO NEVER USED [facility] Tobacco Use History This section includes a history of the smoking, or tobacco-related health factors, that were collected on or before the date of the Encounter. The data comes from the [place] facility where the Encounter took place. Date/Time Smoking Status/Tobacco Use Comment F acility Apr 07, 2023 10:30 AM VA-TOBACCO NEVER USED [facility] Apr 20, 2022 01:00 PM VA-TOBACCO NEVER USED [facility] Apr 14, 2021 01:30 PM VA-TOBACCO NEVER USED [place] Dec 16, 2019 01:57 PM VA-TOBACCO NEVER USED [facility] Advance Directives: All historical and current Section Date Range: From patient's date of to the date document was created. This section includes ALL of a patient's completed or amended VA Advance and Rescinded Directives. The entries below indicate that a directive exists for the patient, but an actual copy is not included with this document. The data comes from all [place] facilities. Date Advance Directives Provider Source Jan 02, 2020 ADVANCE DIRECTIVE CLEMENCIA SNOW [facility] Jan 01, 2020 ADVANCE DIRECTIVE JAKELATHA ALANIS [place] [facility] Encounter Notes: All associated encounter notes This section contains the clinical notes associated to the Encounter. Date/Time Encounter Note(s) Provider Source March 27, 2024 01:05 PM PREVENTIVE MEDICIN E NURSING NOTE: LOCAL TITLE: CLINICAL REMINDERS/NURSING STANDARD TITLE: PREVENTIVE MEDICINE NURSING NOTE DATE OF NOTE: MARCH 27, 2024@13:05 ENTRY DATE: MARCH 27, 2024@13:05:26 AUTHOR: RESHMA LAOIGNER: URGENCY: STATUS: COMPLETED Advance Directive Screen MH AD: Patient has an Advance Directive on file at this [facility]. No updates are needed at this time. The patient received education about Advance Directives and written notification of his/her rights. Suicide Screen: C-SSRS Screening [place] Suicide Severity Rating Scale (C-SSRS) screener 1. Over the past month, have you wished you were or wished you could go to sleep and not wake up? No 2. Over the past month, have you had any actual thoughts of killing yourself? No 3. Over the past month, have you been thinking about how you might do this? Response not required due to responses to other questions. 4. Over the past month, have you had these thoughts and had some intention of acting on them? Response not required due to responses to other questions. 5. Over the past month, have you started to work out or worked out the details of how to kill yourself? Response not required due to responses to other questions. 6. If yes, at any time in the past month did you intend to carry out this plan? Response not required due to responses to other questions. 7. In your lifetime, have you ever done anything, started to do anything, or prepared to do anything to end your life (for example, collected pills, obtained a gun, gave away valuables, went to the roof but didn't jump)? No 8. If YES, was this within the past 3 months? Response not required due to responses to other questions. Homelessness/Food Insecurity Screen: In the past 2 months, have you been living in stable housing that you own, rent, or stay in as part of a household? Yes - Living in stable housing. Are you worried or concerned that in the next 2 months you may NOT have stable housing that you own, rent, or stay in as part of a household? No - Not worried about housing near future The [place] reports the following: Within the past 12 months, you worried whether your food would run out before you got money to buy more. Never true Within the past 12 months, the food you bought just didn't last and you didn't have money to get more. Never true Depression Screening: Perform PHQ-2 A PHQ-2 screen was performed. The score was 0 which is a negative screen for depression. Over the past two weeks, how often have you been bothered by the following problems? 1. Little interest or pleasure in doing things Not at all 2. Feeling down, depressed, or hopeless Not at all Hepatitis B Serology/Immunization: The patient declines to receive the recommended dose of Hepatitis B vaccine. Immunization: HEP B, UNSPECIFIED FORMULATION Refusal Reason: PATIENT DECISION Patient refuses all immunization(s) in the HepB group Date Documented: 03/27/24 13:07 Tobacco Use Screening: The patient has never used tobacco. Influenza Immunization: No influenza vaccination was received during the recent influenza season. Alcohol Use Screen (AUDIT-C): Alcohol Screen: SCREEN FOR ALCOHOL (AUDIT-C) An alcohol screening test (AUDIT-C) was negative (score=0). 1. How often did you have a drink containing alcohol in the past year? Consider a drink to be a 12 ounce can or bottle of regular beer, 8 ounces of malt liquor, a 5 ounce glass of table wine, or a 1.5 ounce shot of liquor (like scotch, gin, or vodka). Never 2. How many drinks containing alcohol did you have on a typical day when you were drinking in the past year? Response not required due to responses to other questions. 3. How often did you have six or more drinks on one occasion in the past year? Response not required due to responses to other questions. COVID-19 Immunization: Refused Moderna Monovalent COVID-19 vaccine Immunization: COVID-19 (MODERNA), MRNA, LNP-S, PF, 50 MCG/0.5 ML (AGES 12+ YEARS) Refusal Reason: PATIENT DECISION Patient refuses all immunization(s) in the COVID-19 group Date Documented: 03/27/24 13:11 Refused Pfizer Monovalent COVID-19 vaccine Immunization: COVID-19 (PFIZER), MRNA, LNP-S, PF, JESSICA-SUCROSE, 30 MCG/0.3 ML (AGES 12+ YEARS) Refusal Reason: PATIENT DECISION Patient refuses all immunization(s) in the COVID-19 group Date Documented: 03/27/24 13:11 Refused Novavax COVID-19 vaccine Immunization: COVID-19 (NOVAVAX), SUBUNIT, RS-NANOPARTICLE, ADJUVANTED, PF, 5 MCG/0.5 ML (AGES 12+ YEARS) Refusal Reason: PATIENT DECISION Patient refuses all immunization(s) in the COVID-19 group Date Documented: 03/27/24 13:11 Sexual Orientation: The patient thinks of their sexual orientation as: Straight or Heterosexual RHS Screen: RHS Screen Session Format: Face to Face Environmental Check Upon inquiry, the individual reports that the environment is safe to proceed. Informed Consent to Screen and Document The individual consents to proceed with screening. The individual consents to documentation of responses. PRIMARY SCREEN: In the past 12 months, how often did a current or former intimate partner (e.g., boyfriend, girlfriend, , , sexual partner): 1. Scream or curse at you Never 2. Insult or talk down to you Never 3. Threaten you with harm Never 4. Physically hurt you Never 5. Force or pressure you to have sexual contact against your will, or when you were unable to say no Never ?? The HITS tool (items 1-4 above) is [place] copyright protected by Marvel Flores MD, and the user has full rights to use it throughout the VA system. PRIMARY SCREEN RESULT: The Primary Screen is NEGATIVE. The individual answered never to all forms of IPV above (i.e., answered never to all 5 items) The individual accepts education and/or resources: No EDUCATION: The individual indicated readiness to learn. Education offered during this session as noted above. The individual indicated understanding by asking relevant questions and making appropriate comments. No barriers to learning were observed or identified. /dale/ RESHMA LAO LPN PACT 10 Signed: 03/27/2024 13:12 RESHMA LAO [facility] March 27, 2024 06:23 AM PHYSICIAN NOTE: LOCAL TITLE: MD NOTE STANDARD TITLE: PHYSICIAN NOTE DATE OF NOTE: MARCH 27, 2024@06:23 ENTRY DATE: MARCH 27, 2024@06:23:40 AUTHOR: JANETTE KOLB EXP COSIGNER: URGENCY: STATUS: COMPLETED HISTORY OF PRESENT ILLNESS: ADAM JOHNSON, is a 44 yo MALE [place], who presents at the [facility] for his annual wellness exam. Labs completed. He reintroduced red meat into his diet about 6 wks ago. He has not had red meat since the late . He and his partner are leaving for a 10 day trip to [facility] on 04/11/24! NonVA Providers: Endocrinology - Dr Latha Whitman - [facility] Active problems - Computerized Problem List is the source for the followin. Hepatomegaly 2. Hepatic peliosis 3. Blood chemistry abnormal 4. Atrial dilatation 5. Elevated BUN 6. Elevated LDH 7. Environmental allergy 8. Low back pain 9. Testicular hypofunction 10. Obstructive sleep apnea syndrome 11. Herpes labialis 12. Liver function tests abnormal The following VA and Non-VA meds were reconciled with patient: Active Outpatient Medications (including Supplies): Issue Date Status Last Fill Active Outpatient Medications Refills Expiration ======= 1) ACYCLOVIR 200MG CAP Qty: 30 for 5 days ACTIVE Issu:06-14-23 Sig: TAKE TWO CAPSULES BY MOUTH THREE Refills: 0 Last:02-22-24 TIMES A DAY Expr:06-14-24 2) CICLOPIROX 8% TOP SOLN Qty: 6.6 for 30 ACTIVE Issu:08-09-23 days Sig: APPLY SMALL AMOUNT Refills: 3 Last:06-15-23 TOPICALLY AT BEDTIME REMOVE WITH Expr:06-14-24 ALCOHOL EVERY 7 DAYS 3) TESTOSTERONE CYP 200MG/ML 1ML IN OIL ACTIVE Issu:10-05-23 Qty: 4 for 28 days Sig: INJECT 0.5ML Refills: 2 Last:03-28-24 (100MG) INTRAMUSCULARLY ONCE A WEEK Expr:04-06-24 Start Date Active Non-VA Medications Refills Expiration ======= 1) Non-VA ASCORBIC ACID 500MG TAB Sig: ACTIVE 1000MG BY MOUTH ONCE DAILY 2) Non-VA CHOLECALCIF 25MCG (D3-1,000UNIT) ACTIVE TAB SiUNIT BY MOUTH ONCE DAILY 3) Non-VA FISH OIL 1000MG (500MG DHA/EPA) ACTIVE CAP SiMG BY MOUTH ONCE DAILY 4) Non-VA MULTIVITAMIN/MINERALS CAP/TAB ACTIVE Si TABLET BY MOUTH ONCE DAILY 5) Non-VA VITAMIN B COMPLEX CAP Si ACTIVE CAPSULE BY MOUTH ONCE DAILY 8 Total Medications ALLERGIES: ========= Patient has answered NKA LAB HISTORY: CHEM 7 TREND Collection DT Spec GLUCOSE BUN CREATIN Sodium K+/Pot CL CO2 03/12/2024 07:34 SERUM 92 26 H 1.09 137 4.9 104 24 05/31/2023 13:09 SERUM 30 H 0.95 03/06/2023 09:01 SERUM 82 29 H 0.98 136 4.2 103 25 04/15/2022 08:35 SERUM 82 28 H 1.10 137 4.1 103 27 04/08/2021 08:04 SERUM 83 27 H 1.14 138 4.2 105 25 CBC TREND Collection DT Spec WBC RBC HGB HCT MCV MCH PLT 03/12/2024 07:34 BLOOD 6.49 5.13 16.1 47.7 93.0 31.4 334 03/06/2023 09:01 BLOOD 4.79 5.10 15.9 47.3 92.7 31.2 261 04/15/2022 08:35 BLOOD 4.48 L 5.63 17.1 H 51.9 H 92.2 30.4 272 04/08/2021 08:04 BLOOD 6.92 5.56 17.5 H 53.0 H 95.3 31.5 288 01/15/2020 09:50 BLOOD 4.53 5.55 17.8 H 52.7 H 95.0 32.1 292 HEMOGLOBIN A1C TREND Collection DT Spec HGBA1c 03/12/2024 07:34 BLOOD 5.1 03/06/2023 09:01 BLOOD 4.7 04/15/2022 08:35 BLOOD 5.1 04/08/2021 08:04 BLOOD 4.9 01/15/2020 09:50 BLOOD 5.1 LIPID PANEL TREND Collection DT Spec CHOL HDL CHO/HDL LDL-c TRIG 03/12/2024 07:34 SERUM 111 25 L 4.4 77 47 03/06/2023 09:01 SERUM 128 45 2.8 72 53 04/15/2022 08:35 SERUM 130 49 2.7 65 82 04/08/2021 08:04 SERUM 101 32 L 3.2 61 42 01/15/2020 09:50 SERUM 108 33 L 3.3 58 86 LIVER PANEL TREND Collection DT Spec AST ALT T BILI ALK WOLF T. PROT ALBUMIN 03/12/2024 07:34 SERUM 84 H 85 H 0.6 61 7.0 3.8 03/06/2023 09:01 SERUM 79 H 66 H 0.8 74 6.9 3.9 04/15/2022 08:35 SERUM 73 H 68 H 1.3 H 61 7.0 4.0 04/08/2021 08:04 SERUM 81 H 69 H 0.7 82 7.4 4.0 04/16/2020 09:59 SERUM 83 H 78 H 1.0 92 7.3 4.4 Collection DT Spec TSH 03/12/2024 07:34 SERUM 1.53 HISTORY: PERIOD OF SERVICE - [facility] [employer] FROM Oct TO May COMBAT SERVICE INDICATED: No VITAL SIGNS: Blood Pressure 120/79 (03/27/2024 13:03) Pulse 73 (03/27/2024 13:03) Respiration 16 (03/27/2024 13:03) Pulse Oximetry 99% (03/27/2024 13:03) Temperature 97.7 F [36.5 C] (03/27/2024 13:03) Pain 0 (03/27/2024 13:03) Height 73 in [185.4 cm] (03/27/2024 13:03) Weight 210.4 lb [95.44 kg] (03/27/2024 13:03) BMI BMI: 27.8 REVIEW OF SYSTEMS: ENT: No sore throat, no cough CARDIOVASCULAR: No chest pain, no palpitations RESPIRATORY: No SOB, no wheezing GASTROINTESTINAL: No abd pain, no N/V/D GENITOURINARY: No dysuria, no hematuria MUSCULOSKELETAL: No joint pain, no joint swelling PSYCHIATRIC: No anxiety, no trouble sleeping, no depression NEUROLOGIC: No H/A, no numbness, no weakness, no tingling EXAMINATION: GENERAL: WD/WN , pleasant & in NAD HEENT: Moist mucosa NECK: Supple, no LN's, no carotid bruits HEART: RRR, S1-S2, no murmurs LUNGS: CTA B/L, no wheezes ABDOMEN: Soft, NT/ND, no HSM, + BS x 4 Quads PERIPH PULSES: 2+ B/L EXTREMITIES: FROM x 4, no edema NEUROLOGIC: AAO x3, no focal neurological deficits PSYCHIATRIC: Good eye contact, affect normal ASSESSMENT/PLAN: Adult Annual General Wellness Exam -advised eye exams yearly and dental exams Q6 mths -advised heart healthy well balanced diet and lifestyle habits -advised regular CV exercise for 30 mins on most days of the week 1. Elevated LFT's: stable, chronic, per liver evaluation from GI 07/10/19, suggested possibly 2/2 testosterone use, he now only uses TRT prescribed by Dr Whitman AST 84 (79) (73) (81) (77) ALT 85 (66) (68) (69) (70) 2. Elevated BUN: chronic, stable, unchanged, kane[ect 2/2 testosterone use, will moniter 3. 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 Hx Low Testosterone: 22 hypogonadism, original testosterone level was 57, managed by Dr Whitman, will place updated endocrine consult 03/12/24: Total Testosterone 941.76 03/12/24: Free Testosterone 134.2 03/06/23: Total Testosterone 866.40 03/06/23: Free Testosterone 255.3H 04/15/22: Total Testosterone 1179.38 H ng/dL (220.00 - 892.00) 04/15/22: Free Testosterone 328.0 H pg/mL (46.00 - 224.00) 04/29/21: Total Testosterone 463.86 ng/dL 04/29/21: Free Testosterone 176.4 pg/mL 01/15/20: Total Testosterone >1500 01/15/20: Free Testosterone 305.6 04/16/20: Total Testosterone 1215.73 H 04/16/20: Free Testosterone 265.5 H 5. Low Back Pain: chronic/intermittent, OTC meds prn 6. Herpes Labialis: on daily suppression of acyclovir 200mg TID 7. Seasonal Allergies: on loratidine 10mg/day 8. Sleep Apnea: dxed as mild in 06/2019, never used CPAP, got a dental appliance but prefers to trial the CPAP machine as he is struggling with fatigue every day, will place a respiratatory consult 9. 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 If pt has any questions, concerns, or changes in current health status he/she will call or come in to the [facility]. BMI>30/>24.99 High Risk: Patient declines to discuss weight management. Patient declined weight discussion. Discussed revisiting at a future visit. Medication Reconciliation: Outpatient: Has the patient been taking medications as documented in the EMLR? YES: The patient has been taking medications as documented in the EMLR. Essential Medication List for Review used to complete this medication reconciliation. INCLUDED IN THIS LIST: Alphabetical list of active outpatient prescriptions dispensed from this [place] (local) and dispensed from another [place] or [facility] facility (remote) as well as inpatient orders (local, pending and active), local clinic medications, locally documented non-VA medications, and local prescriptions that have or been discontinued in the past 90 days. - All changes in medications, including all non-VA/Herbal/OTC medications were entered into CPRS. - If there were any medications the patient should no longer take, they were discontinued. - The patient/caregiver was instructed to update this list, discard old lists, and take this list to the next appointment, whether with a VA or non-VA provider. JLV Link Data on this list may not be complete. Please check [facility]. Allergies/ADRs (Tool #5) FACILITY ALLERGY/ADR -------- [place] [facility] [place] [facility] No Known Allergies [facility] NO KNOWN ALLERGIES Med [facility] ([facility] INCLUDED IN THIS LIST: Alphabetical list of active outpatient prescriptions dispensed from this [place] (local) and dispensed from another [place] or [facility] facility (remote) as well as inpatient orders (local pending and active), local clinic medications, locally documented non-VA medications, and local prescriptions that have or been discontinued in the past 90 days. Non-VA Meds Last Documented On: Jan 29, 2020 NOTE The display of VA prescriptions dispensed from another [place] or [facility] facility (remote) is limited to active outpatient prescription entries matched to National Drug File at the originating site and may not include some items such as investigational drugs, compounds, etc. NOT INCLUDED IN THIS LIST: Medications self-entered by the patient into personal health records (i.e. ibeatyou) are NOT included in this list. Non-VA medications documented outside this VA, remote inpatient orders (regardless of status) and remote clinic medications are NOT included in this list. The patient and provider must always discuss medications the patient is taking, regardless of where the medication was dispensed or obtained. ------ OUTPT ACYCLOVIR 200MG CAP (Status = Active) TAKE TWO CAPSULES BY MOUTH THREE TIMES A DAY Rx# [id number] Last Released: 02/21/24 Qty/Days Supply: 04/04 Rx Expiration Date: 06/14/24 Refills Remainin Non-VA ASCORBIC ACID 500MG TAB TAKE TWO TABLETS BY MOUTH ONCE DAILY Patient wants to buy from Non-VA pharmacy. Non-VA CHOLECALCIF 25MCG (D3-1,000UNIT) TAB TAKE FIVE TABLETS BY MOUTH ONCE DAILY Patient wants to buy from Non-VA pharmacy. OUTPT CICLOPIROX 8% TOP SOLN (Status = Active) APPLY SMALL AMOUNT TOPICALLY AT BEDTIME REMOVE WITH ALCOHOL EVERY 7 DAYS Rx# [id number] Last Released: 06/16/23 Qty/Days Supply: Rx Expiration Date: 06/14/24 Refills Remainin Non-VA FISH OIL 1000MG (500MG DHA/EPA) CAP TAKE 2 CAPSULES BY MOUTH ONCE DAILY Patient wants to buy from Non-VA pharmacy. Non-VA MULTIVITAMIN/MINERALS CAP/TAB TAKE ONE TABLET BY MOUTH ONCE DAILY Patient wants to buy from Non-VA pharmacy. OUTPT TESTOSTERONE CYP 200MG/ML 1ML IN OIL (Status = Active) INJECT 0.5ML (100MG) INTRAMUSCULARLY ONCE A WEEK Rx# [id number] Last Released: 03/27/24 Qty/Days Supply: 03/03 Rx Expiration Date: 04/06/24 Refills Remainin Non-VA VITAMIN B COMPLEX CAP TAKE 1 CAPSULE BY MOUTH ONCE DAILY Patient wants to buy from Non-VA pharmacy. ------ SUPPLIES ------ /dale/ JANETTE KOLB MD Primary Care Physician Signed: 03/27/2024 13:57 JANETTE KOLB
--- OUTSIDE RECORDS SUMMARY | 2025-01-15 17:38 | XMS_ITS | Encounter Summary ---
Author Name [facility] [place] [facility] Address [address] [place] [address] Care Team Providers Care Counter Help Name Role Phone DOLORES ROSE Primary Care Provider JANETTE Ro Primary Care Provider Carina gandhi Selected Encounter This section includes the information on record at [place] for the Encounter. Date/Time Encounter Type Encounter Description Reason Provider Source Jan 06, 2025 01:00 PM PT EDUCATION [facility] SLEEP MEDICINE ICD-10-CM G47.33 Obstructive sleep apnea (adult) (pediatric) ARNAUD XIE Margoth Encounter Template Text not used by [place] Assessments - Encounter Diagnoses This section includes the primary and secondary diagnoses documented for the Encounter. Date/Time Primary/Secondary Diagnosis Diagnosis Name Provider Source Jan 06, 2025 01:39 PM PRIMARY Obstructive sleep apnea (adult) (pediatric) ARNAUD XIE [facility] Plan of Treatment: Future Appointments (+ 6 months) and Future Tests (+/- 45 days) The Plan of Treatment section includes future care activities for the patient from all [place] treatmentfacilities. This section includes future appointments and future orders which are active, pending or scheduled. Future Appointments This section includes appointments that were scheduled to occur 6 months from the date of the Encounter, up to a maximum of 20 appointments. The data comes from all [place] treatment facilities. Appointment Date/Time Appointment Type Appointme nt Facility Name Feb 05, 2025 01:00 PM [facility] [place] [facility] March 26, 2025 01:30 PM [facility] [place] [facility] Apr 14, 2025 01:00 PM [facility] Jun 11, 2025 02:30 PM [facility] - MED[facility] Active, Pending, and Scheduled Orders This section includes a listing of several types of active, pending, and scheduled orders, including clinic medications orders, diagnostic test orders, procedure orders and consult orders; where the start date of the order is 45 days before the date of the Encounter or 45 days after the date of theEncounter. The data comes from all [place] treatment facilities. Test Date/Time Test Type Test Details Facility Name Dec 05, 2024 01:16 PM Consult Order COMM[facility]ITY [facility]ARE-ENDOCRINE Cons Cold Work [facility]'s [facility] Social History: Smoking Status (Most current) and Tobacco Use (All prior to encounter date) This section includes the most current, and the historical, smoking and tobacco- related health factors from the [place] facility where the Encounter took place. Current Smoking Status This section includes the most current smoking, or tobacco-related health factor, from the [place] facility where the Encounter took place. Date/Time Current Smoking Status Comment Facil ity March 27, 2024 01:00 PM VA-TOBACCO NEVER USED [facility] Tobacco Use History This section includes a history of the smoking, or tobacco-related health factors, that were collected on or before the date of the Encounter. The data comes from the [place] facility where the Encounter took place. Date/Time Smoking Status/Tobacco Use Comment F acility Apr 07, 2023 10:30 AM VA-TOBACCO NEVER USED [facility] Apr 20, 2022 01:00 PM VA-TOBACCO NEVER USED [facility] Apr 14, 2021 01:30 PM VA-TOBACCO NEVER USED [facility] Dec 16, 2019 01:57 PM VA-TOBACCO NEVER USED [facility] Advance Directives: All historical and current Section Date Range: From patient's date of to the date document was created. This section includes ALL of a patient's completed or amended [place] Advance and Rescinded Directives. The entries below indicate that a directive exists for the patient, but an actual copy is not included with this document. The data comes from all [place] facilities. Date Advance Directives Provider Source Jan 02, 2020 ADVANCE DIRECTIVE [facility] Jan 01, 2020 ADVANCE DIRECTIVE LATHA JOSEPH [place] [facility] Encounter Notes: All associated encounter notes This section contains the clinical notes associated to the Encounter. Date/Time Encounter Note(s) Provider Source Jan 06, 2025 01:00 PM RESPIRATORY THERAP Y CONSULT: LOCAL TITLE: CONSULT REPORT/RESPIRATORY THERAPY STANDARD TITLE: RESPIRATORY THERAPY CONSULT DATE OF NOTE: JAN 06, 2025@13:00 ENTRY DATE: JAN 06, 2025@13:39:29 AUTHOR: ARNAUD XIE COSIGNER: URGENCY: STATUS: COMPLETED Reason for Visit: Education for new PAP Device Setup Progress Note: Education for New PAP Device Setup: How new PAP Device was provided: Device was provided to from a [place] clinical site Information and settings of Device provided: Device: AIRSENSE 11 AUTOSET [place] TRI Serial number: [id number] Device number: [id number] Settings: with diagnosis of obstructive sleep apnea was seen in clinic for Auto-CPAP set up. [place] Home sleep study on 09/22/2022, HST-BOB 8.4. was issued an AirSense 11 set to APAP 5-15 cmH2O with mask, tube, filter, tank and SD card. Consent for data Monitoring: approves of activation of modeMuzy for remote monitoring of PAP data? Yes approves to receive automated adherence messages? Yes Patient or Caregiver was provided verbal and/or Written instructions on: Equipment use and function Electrical safety including use of grounded or polarized outlets only and avoidance of electoral adapter use Equipment care including cleaning, maintenance, and supply replacement Sleep center contact information Patient or caregiver was able to show demonstration on equipment use Yes Plan of Future Care: Repeat download required PAP clinic follow-up appointment. A scheduling request will be placed. Diagnosis: G47.33 - Obstructive Sleep Apnea Additional comments: instructed on proper operation and cleaning of all equipment and given manuals. Vet was fit with Curran fx nasal pillow medium cushion with chinstrap and instructed in application and adjustments. Information regarding magnetized masks was given. [place] demonstrated understanding of all instructions. We discussed ways to acclimate to therapy and the dangers of untreated sleep apnea. [place] was encouraged to call with any issues. Clinic and provider contact information was provided. [place] will have 1 week data check and RTC placed for FTF or VVC follow up. Minutes professional time spent providing care.: 60 min Procedures 1 Continuous positive airway pressure ventilation (CPAP), initiation and management Procedures 2 Individual (1) Education Procedures 3 Supplies & materiales Procedures 4 Patient education, not otherwise classified, non-physician provider, individual, per session /dale/ ARNAUD XIE RESPIRATORY THERAPIST Signed: 01/06/2025 13:39 Receipt Acknowledged By: 01/07/2025 15:20 /es/ ARNAUD CARDE[place]FIELD
[2025-01-25 13:59] LABS: Testosterone, Free 223.2 pg/mL (35.0-155.0); Testosterone, Total 852 ng/dL (250-1100)
== END 2025-01-15 15:00 | disposition home or self-care (01) ==
LOC: HO.LAB 14:59
PROVIDERS: PCP Family Medicine; Visit Provider Internal Medicine Endocrinology, Diabetes & Metabolism
DX: E29.1 Testicular hypofunction (principal)
CPT/HCPCS: 36415; 84402; 84403; 85014; 85018

== ENCOUNTER 2025-02-05 12:39 | Outpatient (AMB) | payer OTHER, SELFPAY ==
--- NOTE | 2025-02-05 12:50 | A.OFFVIS_ITS ---
Vital Signs 02/05/25 12:53 Height 6 ft 2.8 in Weight 209 lb 7.026 oz BMI 26.3 BP 94/64 Blood Pressure Location Rt brachial Position Sitting Pulse 84 Pulse Source Pulse Oximeter Pulse Oximetry (%) 95 Oxygen Delivery Method Room Air Intake Visit Reasons: f/u hypogonadism Intake Note: Patient present today for Hypogonadism follow up visit. Technical Sales Representatives Required: No Accompanied by: Self / Same As Patient Allergies No Known Allergies Allergy (Verified 02/05/25 12:54) Medication List - Last Reconciled 02/05/25 by Keith Whitman MD ascorbic acid (vitamin C) mg PO vpspirvnb-zgooycyx-vle-hyalur 40-5-3.3 mg (Move Free Ultra Triple Action (boron)) tabs PO cetirizine 10 mg PO DAILY PRN milk thistle 500 mg PO DAILY multivitamin 1 tab PO DAILY omega 9-qff-das-fish oil 1,000 (120-180) mg (Fish Oil) 1 cap PO DAILY testosterone cypionate 100 mg (0.5 mL) IM QWEEK vitamin B complex 1 cap PO DAILY vitamin K2 100 mcg PO DAILY HPI Comments Details: 44 YO Male with PMHx hypogonadism who is seen in consultation at the request of his PCP for Hypogonadism. First diagnosed with Hypogonadism 2014 . Not seen all round logger before . He showed me a previous work up with testosterone was low an LH FSH were undetectable. No further workup was done Was started on Testosterone supplementation with 60 mg 2/wk and found relief. Currently using IM testosterone. Last dose was last Monday . Currently achieving spontaneous am erections, and able to achieve erection when desired. Reports low libido improved somewhat with testosterone . Decreased facial hair and shaving frequency. Denies any change in size or shape of testicles. Denies penile discharge or scrotal tenderness. Denies any history of mumps orchitis. Denies any head trauma. history of NICANOR Does not currently use CPAP with children who were conceived spontaneously. Not looking to father a child Sense of smell intact. Denies headache or visual changes, has gynecomastia but no galactorrhea. Denies orthostatic symptoms, weight loss. Denies change in size of hands or feet. Denies hair loss, weight gain, cold intolerance. 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 MRI showed nonspecific changes without pituitary mass. Sleep study showed mild obstructive sleep apnea PSA CBC Currently on testosterone intramuscular 100 mg q.5days. The patient is a 44-year-old male presenting with concerns regarding testosterone therapy management and elevated inflammation markers. His testosterone regimen, consisting of 100 mg injections every five days, has resulted in peak levels at the upper normal limit with satisfactory libido and overall wellbeing. Previous evaluations indicated normal pituitary gland function; however, the underlying cause of the testosterone deficiency remains unclear, with sleep apnea as a potential contributor. The patient commenced CPAP therapy six weeks ago. The patient reports elevated EMMETT levels suggestive of potential sarcoidosis, though a normal chest X-ray mitigates immediate concerns. His primary care provider previously investigated elevated CPK levels, recommending temporary cessation of exercise without significant findings. Inflammation markers, particularly CRP, have been elevated, but joint symptoms are infrequent. Occasionally, the patient experiences shortness of breath. There is no known family history of prostate cancer or other related conditions. The patient's pituitary function, ferritin levels, and prior testosterone readings have been documented and discussed in prior evaluations. - Labs: Prior ferritin and CPK levels evaluated, noted elevation. EMMETT levels elevated. - Imaging: Chest X-ray normal. 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 I explained the potential benefits and risks of temporarily discontinuing testosterone therapy to evaluate intrinsic testosterone production but informed the patient that this is not urgently indicated. For sleep apnea, continued CPAP therapy appears appropriate, with anticipated reassessment in relation to testosterone therapy if variances in levels are noted. Elevated EMMETT and CRP levels, while not immediately alarming given normal chest X-ray findings, are areas for further investigation, potentially through a business intelligence reporting analyst and assistant boiler operator referral. Physical activity modifications will be monitored to manage elevated CPK levels, with future evaluations to guide ongoing care strategies. - Continue your current testosterone therapy regimen as instructed. - Follow through with CPAP therapy during sleep as recommended. - Monitor and report any new or worsening symptoms, especially regarding respiratory health. - Consider evaluation by a business intelligence reporting analyst for elevated EMMETT levels when feasible. - Maintain a record of any symptoms of joint pains and consult a assistant boiler operator. - Orders: Orders Testosterone, Free/Total 3 Months E29.1 - Testicular hypofunction Hematocrit 8 Months E29.1 - Testicular hypofunction Testosterone, Free/Total 8 Months E29.1 - Testicular hypofunction Hemoglobin 8 Months E29.1 - Testicular hypofunction Coding Level of Care Code Est Pt Level 3 (42080) Diagnoses Hypogonadism, testicular E29.1
[2025-02-05 12:53] VITALS: BP 94/64; PULSE 84; O2SAT 95; BMI 26.3
--- OUTSIDE RECORDS SUMMARY | 2025-02-05 15:06 | XMS_ITS | Clinical Summary ---
Author Organization [facility] ity Address [address] [place] [address] Care Team Providers Care Juice Weigher Name Role Phone Unavailable Primary Care Provider [...]
== END 2025-02-05 13:24 | disposition home or self-care (01) ==
LOC: HO.ENCR 12:39
PROVIDERS: PCP Family Medicine; Visit Provider Internal Medicine Endocrinology, Diabetes & Metabolism
DX: E29.1 Testicular hypofunction (principal)
CPT/HCPCS: 99213

== ENCOUNTER → 2025-02-05 12:39 | Outpatient (BNVA) | payer OTHER, SELFPAY | PROVIDERS: PCP Family Medicine; Visit Provider Internal Medicine Endocrinology, Diabetes & Metabolism | DX: E29.1 Testicular hypofunction (principal) | CPT/HCPCS: 99212 ==

== ENCOUNTER 2025-10-08 12:33 | Outpatient (AMB) | payer OTHER, SELFPAY ==
--- NOTE | 2025-10-08 12:35 | A.OFFVIS_ITS ---
Vital Signs 10/08/25 12:40 Height 6 ft 2.8 in Weight 216 lb 7.903 oz BMI 27.2 BP 100/62 Blood Pressure Location Lt brachial Position Sitting Pulse 75 Pulse Source Pulse Oximeter Pulse Oximetry (%) 95 Oxygen Delivery Method Room Air Intake Visit Reasons: Hypogonadism Intake Note: Patient present today for Hypogonadism follow up visit. Parachute Line Tier Required: No Catalyst Unit Operator: Catalyst Unit Operator Present Accompanied by: Self / Same As Patient Allergies No Known Allergies Allergy (Verified 10/08/25 12:39) Medication List - Last Reconciled 10/08/25 by Keith Whitman MD ascorbic acid (vitamin C) mg PO zgczpwmpc-ikazgcrg-dir-hyalur 40-5-3.3 mg (Move Free Ultra Triple Action (boron)) tabs PO cetirizine 10 mg PO DAILY PRN milk thistle 500 mg PO DAILY multivitamin 1 tab PO DAILY omega 5-eib-aqq-fish oil 1,000 (120-180) mg (Fish Oil) 1 cap PO DAILY testosterone cypionate 100 mg (0.5 mL) IM .q 5 days vitamin B complex 1 cap PO DAILY vitamin K2 100 mcg PO DAILY HPI Comments Details: 45 YO Male with PMHx hypogonadism who is seen in consultation at the request of his PCP for Hypogonadism. First diagnosed with Hypogonadism 2014 . Not seen monitoring and evaluation advisor before . He showed me a previous work up with testosterone was low an LH FSH were undetectable. No further workup was done Was started on Testosterone supplementation with 60 mg 2/wk and found relief. Currently using IM testosterone. Last dose was last Monday . Currently achieving spontaneous am erections, and able to achieve erection when desired. Reports low libido improved somewhat with testosterone . Decreased facial hair and shaving frequency. Denies any change in size or shape of testicles. Denies penile discharge or scrotal tenderness. Denies any history of mumps orchitis. Denies any head trauma. history of NICANOR Does not currently use CPAP with children who were conceived spontaneously. Not looking to father a child Sense of smell intact. Denies headache or visual changes, has gynecomastia but no galactorrhea. Denies orthostatic symptoms, weight loss. Denies change in size of hands or feet. Denies hair loss, weight gain, cold intolerance. 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 MRI showed nonspecific changes without pituitary mass. Sleep study showed mild ob structive sleep apnea PSA CBC Currently on testosterone intramuscular 100 mg q.5days. Recent testosterone level was done after injection and was supposed to be trough . Using CPAP mask. No worsening of urine stream PFSH Medical History (Updated 03/03/23 @ 10:34 by Christi Goyal Tutu) Hypogonadism, testicular Surgical History History of gynecomastia Family History Mother High blood pressure Pneumonia Kidney disease Social History Household Members: Significant Other Household Members Other:: Wolf Alcohol intake: never Patient Tobacco Use Status: Never used Tobacco Physical Exam Vital Signs: Last Vital Signs Pulse 75 10/08/25 12:40 BP 100/62 10/08/25 12:40 Pulse Ox 95 10/08/25 12:40 Oxygen Delivery Method Room Air 10/08/25 12:40 BMI result Body Mass Index 27.2 Assessment & Plan Assessment & Plan (1) Hypogonadism, testicular: Code(s): E29.1 - Testicular hypofunction Category: Medical Plan: This is a 43-year-old male with a history of hypogonadism 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 Testosterone level that was checked was done two days after injection it does not reflect peak or trough. Patient has actually been splitting the dosage to every three days Plan is to recheck a peak testosterone level in about six weeks' time after patient goes back to injecting every five days as directed. Will also check CBC Orders: Orders Testosterone, Free/Total 10 Weeks E29.1 - Testicular hypofunction Coding Level of Care Code Est Pt Level 3 (39452) Diagnoses Hypogonadism, testicular E29.1
[2025-10-08 12:40] VITALS: BP 100/62; PULSE 75; O2SAT 95; BMI 27.2
--- OUTSIDE RECORDS SUMMARY | 2025-10-08 14:47 | XMS_ITS | Clinical Summary ---
Author Organization [facility] ity Address [address] [place] [address] Care Team Providers Care Rolling Machine Operator Automatic Name Role Phone Unavailable Primary Care Provider [...] of 3 - 19+ 3-dose series) 1999 HPV Vaccines (1 - 3-dose SCD M series) 2007 Depression Screening 11/06/2024 COVID-19 Vaccine (1 - 2024-2 6 season) 2025 Influenza Vaccine (#1) 2025 RSV Immunization Adult Patie nts (1 - 1-dose 75+ series) 2055 HIB Vaccines Aged Out No longer eligi [...] age to complete this topic Meningococcal B Vaccine Aged Out No l onger eligible based on patient's age to complete this topic Pneumococcal Vaccine: Pediat rics (0 to 5 Years) and At-Risk Patients (6 to 49 Years) Aged Out No longer eligible b ased on patient's age to complete this topic RSV Immunization Patients Un ngoc 20 months Aged Out No longer eligible b ased on patient's age to complete this topic Varicella Vaccines Aged Out No longer eligible based on patient's age to complete this topic
== END 2025-10-08 13:21 | disposition home or self-care (01) ==
LOC: HO.ENCR 12:33
PROVIDERS: PCP Family Medicine; Visit Provider Internal Medicine Endocrinology, Diabetes & Metabolism
DX: E29.1 Testicular hypofunction (principal)
CPT/HCPCS: 99213

== ENCOUNTER → 2025-10-08 12:33 | Outpatient (BNVA) | payer OTHER, SELFPAY | PROVIDERS: PCP Family Medicine; Visit Provider Internal Medicine Endocrinology, Diabetes & Metabolism | DX: E29.1 Testicular hypofunction (principal) | CPT/HCPCS: 99212 ==